=== PATIENT | male | born 1965 ===

== ENCOUNTER 2017-07-15 14:55 | Emergency (ER) | payer SELFPAY ==
[2017-07-15] MEDS ORDERED: SODIUM BICARBONATE IV ONE (15:05)
[2017-07-15] MEDS ORDERED: CORDARONE IV ONE (15:05)
[2017-07-15] MEDS ORDERED: ADRENALIN ONE (15:05)
[2017-07-15] MEDS ORDERED: VASELINE LIP THERAPY TP PRN (15:26)
[2017-07-15] MEDS ORDERED: ARTIFICIAL TEARS OPHTH OINT OU PRN (15:26)
[2017-07-15] MEDS ORDERED: ASPIRIN PR ONE (15:29)
[2017-07-15 15:34] LABS: Mean Corpuscular HGB Conc 30 % (32-34); Mean Corpuscular Hemoglobin 29 pg (28-32); Mean Corpuscular Volume 95 fl (84-94); Platelet Count 168 K/mm3 (140-440); Red Cell Distribution Width 15.9 % (13.2-15.2)
[2017-07-15] MEDS ORDERED: NACL 0.9% 1000 ML 1,000 ML ONE (15:36)
[2017-07-15 15:44] LABS: INR 1.07 (0.87-1.13)
[2017-07-15 15:45] LABS: BUN/Creatinine Ratio 13.8; Calcium 7.9 mg/dL (8.4-10.2); Chloride 103.3 mmol/L (98-107); Partial Thromboplastin Time 33.8 Sec. (24.2-36.6); Potassium 4.4 mmol/L (3.6-5.0)
--- NOTE | 2017-07-15 15:47 | Emergency Department Report ---
ED CPR HPI - General Chief Complaint: Cardiac Arrest/CPR Time Seen by Provider: 07/15/17 14:55 Source: EMS - History of Present Illness Initial Comments: Patient is a 52-year-old male brought in by EMS in cardiac arrest. Patient was playing basketball and collapsed. 911 was called and the call was received at 2 :30 PM please her on scene at 2:32 PM and started CPR. EMS arrived at 6 minutes later and initiated CPR. Initial rhythm was Vf in the field and he was shot without success. CPR was continued and patient was brought into the emergency department here. On arrival to the emergency department patient was in ASSISTANT COOK. Patient was intubated and multiple rounds of epinephrine were given. MD Complaint: found unresponsive Bystander CPR Performed: No Shock Advised: No Initial Findings in the Field: unresponsive ROSC in the Field: No Associated Injuries: No Associated Symptoms: other (unknown) Treatments Prior to Arrival: chest compressions, epinephrine mgs #, sodium bicarbonate, calcium - Related Data Previous Rx's Medication Instructions Recorded Last Taken Type Carvedilol [Coreg] 6.25 mg PO BID #60 tablet 08/25/16 Unknown Rx Glimepiride [Amaryl] 2 mg PO QAM #30 tab 08/25/16 Unknown Rx Hydralazine HCl [Apresoline TAB] 50 mg PO BID #60 tablet 08/25/16 Unknown Rx Ibuprofen [Motrin] 600 mg PO Q8H PRN #10 tablet 08/25/16 Unknown Rx amLODIPine [Norvasc] 10 mg PO DAILY #30 tablet 08/25/16 Unknown Rx Allergies Allergy/AdvReac Type Severity Reaction Status Date / Time No Known Allergies Allergy Verified 08/24/16 16:24 ED Review of Systems ROS: Stated complaint: Other details as noted in HPI Comment: Unobtainable due to pts medical conditions ED Past Medical Hx - Past Medical History Hx Hypertension: Yes Hx Diabetes: Yes Hx Renal Disease: Yes ("KIDNEY SLOWING DOWN") Additional medical history: CAD - Surgical History Hx Coronary Stent: Yes (X 2) Hx Appendectomy: Yes Additional Surgical History: 2 CARDIAC STENTS - Family History Family history: CAD/IN - Social History Smoking Status: Never Smoker Substance Use Type: Alcohol - Medications Home Medications: Home Medications Medication Instructions Recorded Confirmed Last Taken Type Carvedilol [Coreg] 6.25 mg PO BID #60 tablet 08/25/16 Unknown Rx Glimepiride [Amaryl] 2 mg PO QAM #30 tab 08/25/16 Unknown Rx Hydralazine HCl [Apresoline TAB] 50 mg PO BID #60 tablet 08/25/16 Unknown Rx Ibuprofen [Motrin] 600 mg PO Q8H PRN #10 tablet 08/25/16 Unknown Rx amLODIPine [Norvasc] 10 mg PO DAILY #30 tablet 08/25/16 Unknown Rx ED Physical Exam - General Limitations: Physical Limitation General appearance: obtunded - Head Head exam: Present: atraumatic, normocephalic - Eye Eye exam: Present: other (pupils fixed ) - ENT ENT exam: Present: normal orophraynx. Absent: normal exam - Neck Neck exam: Absent: normal inspection - Respiratory Respiratory exam: Present: respiratory distress, rales. Absent: normal lung sounds bilaterally - Cardiovascular Cardiovascular Exam: Present: other (no organized cardiac rhythm or pulse) - Extremities Exam Extremities exam: Present: normal inspection, full ROM - Back Exam Back exam: Present: normal inspection - Neurological Exam Neurological exam: Absent: alert, altered, oriented X3 ED Course Vital Signs 07/15/17 15:15 Pulse Rate 60 O2 Sat by Pulse 98 Oximetry - Intubation Time Out Performed: Yes Sedative: Etomidate Laryngoscope: fiberoptic video scope Size: 4 Assist Device Used: fiberoptic device ET Tube Size: 7.5 Tube Placement Confirmation: visualized tube passing t, equal breath sounds bilat, no breath sounds over epi, confirmation by capnometr Patient Tolerated Procedure: no complications Intubation Complications: none ED Medical Decision Making - Lab Data Result diagrams: 07/15/17 15:20 07/15/17 15:20 Laboratory Results - last 24 hr 07/15/17 07/15/17 07/15/17 15:20 15:20 15:20 WBC 7.0 RBC 4.40 Hgb 12.8 Hct 42.0 MCV 95 H MCH 29 MCHC 30 L RDW 15.9 H Plt Count 168 Lymph % (Auto) Travel Occupational Therapist Add Manual Diff Complete Total Counted 100 Seg Neutrophils % Travel Occupational Therapist Seg Neuts % (Manual) 27.0 L Band Neutrophils % 4.0 Lymphocytes % (Manual) 52.0 H Reactive Lymphs % (Man) 0 Monocytes % (Manual) 12.0 H Eosinophils % (Manual) 0 Basophils % (Manual) 1.0 Metamyelocytes % 2.0 Myelocytes % 2.0 Promyelocytes % 0 Blast Cells % 0 Nucleated RBC % Not Reportable Seg Neutrophils # Man 1.9 Band Neutrophils # 0.3 Lymphocytes # (Manual) 3.6 Abs React Lymphs (Man) 0.0 Monocytes # (Manual) 0.8 Eosinophils # (Manual) 0.0 Basophils # (Manual) 0.1 Metamyelocytes # 0.1 Myelocytes # 0.1 Promyelocytes # 0.0 Blast Cells # 0.0 WBC Morphology Not Reportable Hypersegmented Neuts Not Reportable Hyposegmented Neuts Not Reportable Hypogranular Neuts Not Reportable Smudge Cells Not Reportable Toxic Granulation Not Reportable Toxic Vacuolation Not Reportable Dohle Bodies Not Reportable Pelger-Huet Anomaly Not Reportable Stephany Rods Not Reportable Platelet Estimate Consistent w auto Clumped Platelets Not Reportable Plt Clumps, EDTA Not Reportable Large Platelets Not Reportable Giant Platelets Not Reportable Platelet Satelliting Not Reportable Plt Morphology Comment Not Reportable RBC Morphology Not Reportable Dimorphic RBCs Not Reportable Polychromasia Not Reportable Hypochromasia Not Reportable Poikilocytosis Few Anisocytosis 1+ Microcytosis Not Reportable Macrocytosis Not Reportable Spherocytes Not Reportable Pappenheimer Bodies Not Reportable Sickle Cells Not Reportable Target Cells Not Reportable Tear Drop Cells Not Reportable Ovalocytes 1+ Helmet Cells Not Reportable [place] Bodies Not Reportable [place]iceland Rings Not Reportable Ingrid Cells Not Reportable Bite Cells Not Reportable Crenated Cell Not Reportable Elliptocytes Not Reportable Acanthocytes (Spur) Not Reportable Rouleaux Not Reportable Hemoglobin C Crystals Not Reportable Schistocytes Not Reportable Malaria parasites Not Reportable Maulik Bodies Not Reportable Hem Pathologist Commnt No PT 14.5 INR 1.07 APTT 33.8 Sodium 145 Potassium 4.4 Chloride 103.3 Carbon Dioxide 19 L Anion Gap 27 BUN 29 H Creatinine 2.1 H Estimated GFR 33 BUN/Creatinine Ratio 13.80 Glucose 195 H Calcium 7.9 L Troponin T 0.022 - EKG Data -: EKG Interpreted by In - EKG Data 07/15/17 17:24 Sinus bradycardia rate of 48 left axis deviation and right bundle branch block ST elevation in 1 and aVL V2 V3 V4 V5 and V6 significant ST depression in III and aVF - Medical Decision Making 52-year-old male who presents emergency Department in cardiac arrest. Patient collapsed while playing basketball. I do not have any further history other than that. According to EMS police arrived within 2 minutes and started CPR and the patient. EMS arrived proximally 6 minutes later and continued CPR. The initial rhythm was V. fib. He was defibrillated without return of spontaneous circulation. At some point he went into PEA according to EMS. He was transported to the emergency department. He received 2 doses of epinephrine dose of calcium and a dose of bicarbonate by EMS. On arrival here he were was in PEA. CPR was continued as well as ACLS protocol. The patient was intubated with video laryngoscopy. 2 additional rounds of epinephrine were given and the patient had return of spontaneous circulation. His pulse was lost then again he required additional doses of epinephrine and was defibrillated. I called the securities analyst and discussed the case with him after the patient had had return of spontaneous circulation and the securities analyst asked me to send him the EKG. EKG showed an obvious STEMI. Despite my recommendation, there is no determination by Dr. Molina to take the patient to the Collections Rep. In the meantime the patient lost his pulse again. ACLS protocols were initiated. The patient initially started in PEA and then proceeded to asystole. Bedside ultrasound showed no cardiac activity. At this point he been down for over an hour and I decided to terminate resuscitation. Time of was 3:38. Critical Care Time: Yes (60) Critical care attestation.: If time is entered above; I have spent that time in minutes in the direct care of this critically ill patient, excluding procedure time. ED Disposition Clinical Impression: Cardiac arrest Disposition: [id number] Is pt being admited?: No Condition: Stable Referrals: PRIMARY CARE, [Primary Care Provider] - 3-5 Days
[2017-07-15 15:50] LABS: Hemoglobin 12.8 gm/dl (11.8-15.2)
[2017-07-15] MEDS ORDERED: NACL 0.9% 500 ML IV SCH (16:00)
[2017-07-15 16:41] LABS: Anisocytosis 1+; Blastocytes % (Manual) 0 %; Eosinophils % (Manual) 0 % (0.0-4.3)
[2017-07-15 16:42] LABS: Diff Status Complete; Ovalocytes 1+; Platelet Estimate Consistent w Auto; Poikilocytosis Few
== END 2017-07-15 18:03 ==
LOC: ED 14:58
DX: I46.9 Cardiac arrest, cause unspecified (principal); I10 Essential (primary) hypertension; E11.9 Type 2 diabetes mellitus without complications; I25.10 Atherosclerotic heart disease of native coronary artery without angina pectoris
CPT/HCPCS: 31500; 36415; 80048; 84484; 85007; 85025; 85610; 85730; 92950; 93005; 93010; 99285; J0171; J0282; J7030; 94002